=== PATIENT | male | born 1975 | race Caucasian/White ===

== ENCOUNTER → 2021-01-05 | Outpatient (CLI) | payer OTHER ==
[~2021-01-05] VITALS: Ht 180.3 cm; Wt 127.9 kg
[~2021-01-05] MED LIST: AVAPRO300 MG PO; BENICAR40 MG PO; CELEBREX 200 M200 MG PO; DEXILANT60 MG PO; HYDROCHLOROTHIA25 M2 PO; MOBIC15 MG PO; TRICOR145 MG PO; ULTRAM50 MG PO
[2021-01-05 10:20] VITALS: BP 123/79
--- NOTE | 2021-01-05 10:28 | NUR ---
[facility] Assessment: 1. History of Osteoarthritis: Not Applicable History of Rheumatoid Arthritis: Not Applicable 2. Height: 5 ft. 11 in. 180.3 cm. Weight: 282.0 lb. oz. 127.915 kg. Patient's BMI: 39.3 3. Vital Signs: BP: 123/79 Pulse: 83 Resp: 16 Temp: 02 Sat: 97 ECG Mon: 4. Pain Intensity: 5-10 5. Fall Risk: Dizziness: N Needs help standing or walking: N Fallen in the last 3 months: N Fall risk comments: 6. Patient on Blood Thinner: None 7. History of Hypertension: Y 8. Opioid Therapy greater than 6 weeks: N Opiate Contract Signed: 9. Risk Assessment Tool Provided: 0-LOW RISK 10. Functional Assessment Tool: 66/70 11. Recreational Drug Use: Never Drug Type: Tobacco Use: Never Smoker Tobacco Type: Amount or Packs/day: How Many Years: Alcohol Use: Yes Frequency: Weekly Quant: 6 DRINKS PER WEEK
== END ==
LOC: PAIN 07:05
PROVIDERS: ATTEND Anesthesiology Pain Medicine
DX: M54.5 Low back pain (principal); I10 Essential (primary) hypertension; F10.10 Alcohol abuse, uncomplicated